=== PATIENT | male | born 1945 | race Caucasian/White ===

== ENCOUNTER 2021-04-25 13:11 | Inpatient (IN) | payer MEDICARE, SELFPAY ==
--- NOTE | ~2021-04-25 | XR_ITS ---
EXAMINATION: XR ABDOMEN KUB CLINICAL INDICATION: Nausea and vomiting COMPARISON: CT abdomen pelvis 04/28/2019 TECHNIQUE: AP view of the abdomen. FINDINGS: The bowel gas pattern is normal with no evidence of ileus or obstruction. No unusual soft tissue calcifications are noted. Contrast is present in both renal pelves as well as the bladder from prior contrast administration for CT angiogram of the head and neck. Degenerative changes present throughout the spine with scoliosis convex to right. No fractures or bony destructive lesions.. XR/XR KUB IMPRESSION: No evidence of bowel obstruction
--- NOTE | ~2021-04-25 | CT_ITS ---
EXAMINATION: CT ANGIOGRAM NECK WITH CONTRAST CT ANGIOGRAM BRAIN WITH CONTRAST CLINICAL INFORMATION: Headaches. COMPARISON: Head CT 07/09/2011. TECHNIQUE: Test bolus sequences followed by intravenous administration 70 mL of Omnipaque 350. Helical imaging was performed in the axial plane from the thoracic inlet to the skull vertex. Delayed postcontrast imaging of the head was also performed. The data was processed at the isotope technologist workstation for generation of MIP sequences. Angled MIPs and volume rendered reformatted images were also generated at an offline 3D workstation. Stenoses are assessed in accordance with NASCET criteria unless otherwise indicated. This CT examination was performed using dose optimization techniques as appropriate, variously including the following: *Automated exposure control *Adjustment of mA and/or kV according to patient size (this includes techniques or standardized protocols for targeted exams where dose is matched to indication/reason for exam; i.e. extremities or head) *Use of iterative reconstruction technique DLP: 2160 mGy-cm FINDINGS: Head CT: On the postcontrast images, there is no intracranial hemorrhage, extra-axial collection, mass effect, or territorial infarction. There is low-attenuation in the right more than left inferior frontal lobes marginating the operculum which may represent areas of chronic infarction or chronic small vessel ischemic changes but appear similar compared with 07/09/2011. The ventricles are normal in size without evidence of hydrocephalus. No enhancing lesion is seen. The dural venous sinuses are normally opacified. There is moderate polypoid paranasal sinus mucosal thickening involving the ethmoids. There is circumferential mucosal thickening and layering fluid in the maxillary sinuses. The mastoids are clear. Neck CTA: The aortic arch is patent. The great vessel origins are patent. Both common carotid arteries are patent. Atheromatous changes are seen at the left more than right carotid bifurcations but without flow-limiting stenosis. 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 Right cervical ICA is otherwise unremarkable. The left cervical ICA is patent. The right vertebral artery is patent throughout its cervical course. There is some narrowing of the left vertebral artery as it courses adjacent to the severely degenerated left-sided atlantoaxial joint with approximately mild stenosis present. Head CTA: The intradural segments of both vertebral arteries appear normal. A basilar fenestration is present. The basilar artery is otherwise unremarkable. The bilingual case manager appear normal. The cervical ICAs are patent. The ACAs and MCAs are patent. No vascular occlusion or significant stenosis is seen. There is no definite aneurysm. Non-vascular findings: The cervical soft tissues are within normal limits. The esophagus appears significantly patulous and filled with fluid/ingested material. The imaged upper lungs appear clear. Severe degenerative changes are seen in the cervical spine. There is grade 1 retrolisthesis of C4 on C5 and C5 on C6. Spinal canal stenosis appears severe at C4-C5 and C5-C6. CT/CT angio head neck IMPRESSION: CT head: No intracranial hemorrhage or large acute infarction. Moderate polypoid soft tissue thickening within the paranasal sinuses and layering fluid in the bilateral maxillary sinuses. Consider clinical evaluation for acute sinusitis. CTA neck: No hemodynamically significant stenosis in the major arteries of the neck. 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 Vascular consultation/follow-up is recommended. CTA head: No large vessel occlusion or significant stenosis within the intracranial circulation. Additional findings: Severe multilevel degenerative spondylosis with severe spinal canal stenosis seen at C4-C5 and C5-C6. There is likely cord compression at these levels. Patulous dilated esophagus containing fluid/ingested contents. This critical result was discussed with Mel Clifford on 04/25/2021 9:37 PM, and it was ascertained that the content and urgency of the report was understood at the time of direct communication.
[2021-04-25 13:32] VITALS: BP 149/93; PULSE 90; RESP 16; TEMP 36.9; O2SAT 97; BMI 22.4
[2021-04-25 16:30] LABS: MANUAL DIFF FLAG NO
[2021-04-25 16:31] LABS: Basophils Percent Auto 0.2 % (0-2); Eosinophils Absolute Auto 0.1 X10*3/uL (0.0-0.4); Hematocrit 38.6 % (42-52); Hemoglobin 12.9 g/dl (14.0-18.0); Imm Gran Abs Auto 0.01 X10*3/uL (0.00-0.03); Imm Gran Pct Auto 0.2 % (0.0-0.4); Lymphocytes Absolute Auto 1.1 X10*3/uL (1.2-4.9); Lymphocytes Percent Auto 18.6 % (20-40); Mean Corpuscular HGB Conc 33.4 g/dl (31.0-36.0); Mean Corpuscular Hemoglobin 29.6 pg (27.0-33.0); Mean Corpuscular Volume 88.5 fL (80-98); Mean Platelet Volume 8.2 fL (9.4-12.4); Monocytes Absolute Auto 0.6 X10*3/uL (0.1-1.2); Monocytes Percent Auto 10.7 % (2-11); Neutrophils Percent Auto 69.3 % (45-73); Platelet Count 237 X10*3/uL (160-400); Red Blood Count 4.36 X10*6/uL (4.60-5.80); Red Cell Distribution Width 14.1 % (11.0-16.0); White Blood Count 5.8 X10*3/uL (4.8-10.8)
[2021-04-25 16:43] LABS: Anion Gap 12 (12-20); Blood Urea Nitrogen 13 mg/dL (9-16); Calcium 8.5 mg/dL (8.4-10.2); Carbon Dioxide 25 mmol/L (22-29); Chloride 98 mmol/L (96-108); Estimated Glomerular Filt Rate > 60; Glucose Random 82 mg/dL (60-115); Potassium 3.7 mmol/L (3.3-5.1); Sodium 131 mmol/L (135-145)
--- NOTE | 2021-04-25 19:01 | ECG_ITS ---
Test Reason : HEADACHE Blood Pressure : / mmHG Vent. Rate : 078 BPM Atrial Rate : 078 BPM P-R Int : 232 ms QRS Dur : 102 ms QT Int : 402 ms P-R-T Axes : 020 003 013 degrees QTc Int : 458 ms Sinus rhythm with 1st degree A-V block Otherwise normal ECG When compared with ECG of 09-JUL-2011 11:38, [place] interval has increased Referred By: Mel Mcclain Electronically Signed By:MOE ANTONIO
--- NOTE | 2021-04-25 19:01 | ED.HA ---
HPI - Headache General Chief Complaint: Headache Stated Complaint: HEAD PRESSURE FEVER Time Seen by Provider: 04/26/21 00:04 Source: patient Mode of arrival: ambulatory Limitations: no limitations History of Present Illness HPI Narrative: 75-year-old male presents with three months of intractable headache, daily nausea and vomiting for approximately 6 months, and intermittent fevers for the past 2 years. He states that he has been taking up to 20 tablets of Excedrin on a daily basis, and has 10/10 headache on minimal exertion. He needs to rest approximately every 15 minutes because his headaches are so bad they cause dizziness and loss of balance. MD elicited complaint: headache and migraine Onset (ago): month(s) Onset description: while at rest and with exertion Location: generalized Severity: severe Quality & Timing: aching, throbbing, squeezing and progressively worsening Exacerbating factors: exertion and movement of head/neck Relieving factors: nothing Associated symptoms: vomiting, neck stiffness, eye pain and malaise Treatments prior to arrival: acetaminophen and migraine medication Related Data Home Medications Medication Instructions Recorded Confirmed cetirizine 10 mg tablet 1 tab PO DAILY 04/25/21 04/25/21 finasteride 5 mg tablet 1 tab PO DAILY 04/25/21 04/25/21 omeprazole 40 mg capsule,delayed 1 cap PO BID 04/25/21 04/25/21 release tamsulosin 0.4 mg capsule 1 cap PO DAILY 04/25/21 04/25/21 Allergies Allergy/AdvReac Type Severity Reaction Status Date / Time No Known Allergies Allergy Verified 04/25/21 19:56 Review of Systems Review of Systems: Constitutional: No Fever, No Chills ENT/Mouth: No Ear Pain, No Hoarseness, No sore throat Eyes: No Eye Pain, No Swelling, No Redness, No Foreign Body Cardiovascular: No Chest Pain, No SOB Respiratory: No Cough, No Dyspnea Gastrointestinal: Positive Nausea, positive Vomiting, No Diarrhea, No abdominal Pain Genitourinary: No Dysuria, No Hematuria Musculoskeletal: No joint pain, No Myalgias, No Joint Swelling Skin: No Skin lacerations, No rash Neuro: No Weakness, No Numbness, No Paresthesias, No Loss of Consciousness, No Dizziness, positive Headache Psych: No Anxiety/Panic, No Depression Heme/Lymph: no easy bruising, no Lymphadenopathy Endocrine: No Polyuria, No Polydipsia Yes all other systems are reviewed and are negative [facility] Past Medical History Attestation statement: The following information was validated with the patient. Source: old records reviewed Social History Social History Household Members: Spouse Housing: House Do you presently have visiting nurse or other home services: No Alcohol intake: former Patient Tobacco Use Status: Never used Tobacco Second Hand Smoke Exposure: No Use of substances other than those prescribed or required for medical reasons: No Have you been hit, kicked, punched, or otherwise hurt by someone within the past year? If so, by whom?: No Do you feel safe in your current relationship?: Yes Is there a partner from a previous relationship who is making you feel unsafe now?: No Are you made to feel afraid or neglected: No Advance Directives: No Do you have thoughts of harming others: None Do you have a plan to hurt others: No Plan Recently lost weight without trying: Yes How much weight loss: Unsure Eating poorly because of decreased appetite: Yes Nutrition screen score: 5 Nutrition Risks: Acute nausea or vomiting x1 week Poor oral hygiene: No Physical Exam Vital Signs: Vital Signs: Last Vital Signs Temp 98.0 F 04/25/21 21:50 Pulse 75 04/26/21 00:29 Resp 12 04/26/21 00:29 BP 149/93 H 04/26/21 00:29 Pulse Ox 96 04/26/21 00:29 Body Mass Index 22.4 Appearance: Alert. Oriented X3. Moderate distress. Thin. Head: Normal external exam. Normocephalic. Atraumatic. No Kirkpatrick signs noted. No raccoon eyes noted Eyes: PERRLA. EOMI. Conjunctiva and sclera normal. Eyelids normal. ENT: TM's Normal. Pharynx normal. Uvula midline. Moist mucous membranes. No trismus noted. No drooling noted. No muffled voice noted. Neck: Normal inspection. Neck supple. No adenopathy. Thyroid Normal. No meningeal signs. No neck mass noted. CVS: Normal heart rate and rhythm. Heart sound normal. No murmurs noted. Pulses equal to all extremities. Respiratory: No respiratory distress. Painless inspiration. Breath sounds normal. No wheezes/rales/rhonchi noted. Chest nontender. No accessory muscle usage noted or decreased air movement noted. Abdomen: Soft and nontender. Bowel sounds normal in all 4 quadrants. No distention noted. No organomegaly noted. No visible injury noted. Back: No CVA tenderness. Full range of motion noted. Skin: Skin warm and dry. Normal skin color. Normal skin turgor. No rashes/lesions/lacerations noted. Extremities: No lower extremity edema. Extremities exhibit normal range of motion. Extremities nontender. Neuro: cranial nerves 2-12 intact, no focal neural deficits, strength 5/5 to all extremities, No motor deficit. No sensory deficit. Reflexes normal. Course Course Course Narrative: 75-year-old male presents with intractable headache for approximately 3 months, gradually getting worse, unrelieved with [id number] medications and migraine medications. Accompanied with nausea and vomiting, worsens with exertion. Will order CTA of head and neck. Mild hyponatremia 131, CRP elevated at 4.14. CT scan of head and neck indicate severe spinal stenosis with cervical compression. I did discuss this case with Dr. Gibson, on-call Neurology, plan of care is to admit, place on soft C-collar and MRI for tomorrow. Discussed with hospitalist. CT scan also indicates sinusitis. Will treat with Augmentin and prednisone. Patient verbalizes understanding of and agrees to plan for admission. Consultations Consultation #1: Arthur Time: 21:54 Consultation #2: lorie Time: 23:21 MDM - Headache Differential Diagnosis Differential diagnosis: Likely migraine, tension headache, subarachnoid hemorrhage, headache and sinusitis Medical Records Attestation: I reviewed the patient's medical records. Lab Data Attestation: I reviewed the patient's lab results. Result diagrams: 04/25/21 16:11 04/25/21 16:11 Labs: Lab Results 04/25/21 04/25/21 04/25/21 Range/Units 16:11 16:11 19:43 WBC 5.8 (4.8-10.8) X10*3/uL RBC 4.36 L (4.60-5.80) X10*6/uL Hgb 12.9 L (14.0-18.0) g/dl Hct 38.6 L (42-52) % MCV 88.5 (80-98) fL MCH 29.6 (27.0-33.0) pg MCHC 33.4 (31.0-36.0) g/dl RDW 14.1 (11.0-16.0) % Plt Count 237 (160-400) X10*3/uL MPV 8.2 L (9.4-12.4) fL Immature Gran % (Auto) 0.2 (0.0-0.4) % Neut % (Auto) 69.3 (45-73) % Lymph % (Auto) 18.6 L (20-40) % Cotton % (Auto) 10.7 (2-11) % Eos % (Auto) 1.0 (0-4) % Baso % (Auto) 0.2 (0-2) % Lymph # (Auto) 1.1 L (1.2-4.9) X10*3/uL Cotton # (Auto) 0.6 (0.1-1.2) X10*3/uL Eos # (Auto) 0.1 (0.0-0.4) X10*3/uL Baso # (Auto) 0.0 (0.0-0.2) X10*3/uL Abs Immat Gran (auto) 0.01 (0.00-0.03) X10*3/uL Absolute Neuts (auto) 4.0 (2.0-8.3) X10*3/uL Absolute Nucleated RBC 0.000 (0.0-0.012) X10*3/uL Nucleated RBC % (auto) 0.0 (0.0-0.2) /100WBC ESR (0-15) MM/HR Sodium 131 L (135-145) mmol/L Potassium 3.7 (3.3-5.1) mmol/L Chloride 98 (96-108) mmol/L Carbon Dioxide 25 (22-29) mmol/L Anion Gap 12 (12-20) BUN 13 (9-16) mg/dL Creatinine 0.71 (0.5-1.4) mg/dL Estim Creat Clear Calc 85.0 Estimated GFR > 60 Random Glucose 82 (60-115) mg/dL Calcium 8.5 (8.4-10.2) mg/dL Magnesium (1.6-2.6) mg/dL Troponin I High Sens (<3.5-35.0) ng/L C-Reactive Protein (< or = 0.50) mg/dL Urine Color Urine Appearance Urine pH (5.0-8.0) Ur Specific [place] (1.005-1.025) Urine Protein (NEG-TRACE) MG/DL Urine Glucose (UA) (NEG) MG/DL Urine Ketones (NEG) MG/DL Urine Blood (NEG) Urine Nitrite (NEG) Ur Leukocyte Esterase (NEG) Urine RBC (0) /HPF Urine WBC (0-4) /HPF Ur Squamous Epith Cells /LPF Urine Bacteria /LPF Urine Opiates Screen (Not Detect) Urine Fentanyl Screen (Not Detect) Ur Barbiturates Screen (Not Detect) Ur Phencyclidine Scrn (Not Detect) Ur Amphetamines Screen (Not Detect) U Benzodiazepines Scrn (Not Detect) Urine Cocaine Screen (Not Detect) U Marijuana (THC) Screen (Not Detect) COVID-19 (JOHNNY) Negative (Negative) COVID-19 Clin Com See Note 04/25/21 04/25/21 04/25/21 Range/Units 19:43 19:43 19:50 WBC (4.8-10.8) X10*3/uL RBC (4.60-5.80) X10*6/uL Hgb (14.0-18.0) g/dl Hct (42-52) % MCV (80-98) fL MCH (27.0-33.0) pg MCHC (31.0-36.0) g/dl RDW (11.0-16.0) % Plt Count (160-400) X10*3/uL MPV (9.4-12.4) fL Immature Gran % (Auto) (0.0-0.4) % Neut % (Auto) (45-73) % Lymph % (Auto) (20-40) % Cotton % (Auto) (2-11) % Eos % (Auto) (0-4) % Baso % (Auto) (0-2) % Lymph # (Auto) (1.2-4.9) X10*3/uL Cotton # (Auto) (0.1-1.2) X10*3/uL Eos # (Auto) (0.0-0.4) X10*3/uL Baso # (Auto) (0.0-0.2) X10*3/uL Abs Immat Gran (auto) (0.00-0.03) X10*3/uL Absolute Neuts (auto) (2.0-8.3) X10*3/uL Absolute Nucleated RBC (0.0-0.012) X10*3/uL Nucleated RBC % (auto) (0.0-0.2) /100WBC ESR 11 (0-15) MM/HR Sodium (135-145) mmol/L Potassium (3.3-5.1) mmol/L Chloride (96-108) mmol/L Carbon Dioxide (22-29) mmol/L Anion Gap (12-20) BUN (9-16) mg/dL Creatinine (0.5-1.4) mg/dL Estim Creat Clear Calc Estimated GFR Random Glucose (60-115) mg/dL Calcium (8.4-10.2) mg/dL Magnesium (1.6-2.6) mg/dL Troponin I High Sens (<3.5-35.0) ng/L C-Reactive Protein (< or = 0.50) mg/dL Urine Color YELLOW Urine Appearance CLEAR Urine pH 6.0 (5.0-8.0) Ur Specific [place] 1.010 (1.005-1.025) Urine Protein NEG (NEG-TRACE) MG/DL Urine Glucose (UA) NEG (NEG) MG/DL Urine Ketones NEG (NEG) MG/DL Urine Blood TRACE (NEG) Urine Nitrite NEG (NEG) Ur Leukocyte Esterase NEG (NEG) Urine RBC 0-2 (0) /HPF Urine WBC 0-2 (0-4) /HPF Ur Squamous Epith Cells NONE /LPF Urine Bacteria NONE /LPF Urine Opiates Screen Not Detected (Not Detect) Urine Fentanyl Screen Not Detected (Not Detect) Ur Barbiturates Screen Not Detected (Not Detect) Ur Phencyclidine Scrn Not Detected (Not Detect) Ur Amphetamines Screen Not Detected (Not Detect) U Benzodiazepines Scrn Not Detected (Not Detect) Urine Cocaine Screen Not Detected (Not Detect) U Marijuana (THC) Screen Not Detected (Not Detect) COVID-19 (JOHNNY) (Negative) COVID-19 Clin Com 04/25/21 04/25/21 Range/Units 19:50 19:50 WBC (4.8-10.8) X10*3/uL RBC (4.60-5.80) X10*6/uL Hgb (14.0-18.0) g/dl Hct (42-52) % MCV (80-98) fL MCH (27.0-33.0) pg MCHC (31.0-36.0) g/dl RDW (11.0-16.0) % Plt Count (160-400) X10*3/uL MPV (9.4-12.4) fL Immature Gran % (Auto) (0.0-0.4) % Neut % (Auto) (45-73) % Lymph % (Auto) (20-40) % Cotton % (Auto) (2-11) % Eos % (Auto) (0-4) % Baso % (Auto) (0-2) % Lymph # (Auto) (1.2-4.9) X10*3/uL Cotton # (Auto) (0.1-1.2) X10*3/uL Eos # (Auto) (0.0-0.4) X10*3/uL Baso # (Auto) (0.0-0.2) X10*3/uL Abs Immat Gran (auto) (0.00-0.03) X10*3/uL Absolute Neuts (auto) (2.0-8.3) X10*3/uL Absolute Nucleated RBC (0.0-0.012) X10*3/uL Nucleated RBC % (auto) (0.0-0.2) /100WBC ESR (0-15) MM/HR Sodium (135-145) mmol/L Potassium (3.3-5.1) mmol/L Chloride (96-108) mmol/L Carbon Dioxide (22-29) mmol/L Anion Gap (12-20) BUN (9-16) mg/dL Creatinine (0.5-1.4) mg/dL Estim Creat Clear Calc Estimated GFR Random Glucose (60-115) mg/dL Calcium (8.4-10.2) mg/dL Magnesium 1.9 (1.6-2.6) mg/dL Troponin I High Sens < 3.5 (<3.5-35.0) ng/L C-Reactive Protein 4.14 H (< or = 0.50) mg/dL Urine Color Urine Appearance Urine pH (5.0-8.0) Ur Specific [place] (1.005-1.025) Urine Protein (NEG-TRACE) MG/DL Urine Glucose (UA) (NEG) MG/DL Urine Ketones (NEG) MG/DL Urine Blood (NEG) Urine Nitrite (NEG) Ur Leukocyte Esterase (NEG) Urine RBC (0) /HPF Urine WBC (0-4) /HPF Ur Squamous Epith Cells /LPF Urine Bacteria /LPF Urine Opiates Screen (Not Detect) Urine Fentanyl Screen (Not Detect) Ur Barbiturates Screen (Not Detect) Ur Phencyclidine Scrn (Not Detect) Ur Amphetamines Screen (Not Detect) U Benzodiazepines Scrn (Not Detect) Urine Cocaine Screen (Not Detect) U Marijuana (THC) Screen (Not Detect) COVID-19 (JOHNNY) (Negative) COVID-19 Clin Com Imaging Data CT head neck: Attestation: I personally reviewed and interpreted this imaging study as follows: Radiologist's impression: FINDINGS: Head CT: On the postcontrast images, there is no intracranial hemorrhage, extra-axial collection, mass effect, or territorial infarction. There is low-attenuation in the right more than left inferior frontal lobes marginating the operculum which may represent areas of chronic infarction or chronic small vessel ischemic changes but appear similar compared with 07/09/2011. The ventricles are normal in size without evidence of hydrocephalus. No enhancing lesion is seen. The dural venous sinuses are normally opacified. There is moderate polypoid paranasal sinus mucosal thickening involving the ethmoids. There is circumferential mucosal thickening and layering fluid in the maxillary sinuses. The mastoids are clear. Neck CTA: The aortic arch is patent. The great vessel origins are patent. Both common carotid arteries are patent. Atheromatous changes are seen at the left more than right carotid bifurcations but without flow-limiting stenosis. 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 Right cervical ICA is otherwise unremarkable. The left cervical ICA is patent. The right vertebral artery is patent throughout its cervical course. There is some narrowing of the left vertebral artery as it courses adjacent to the severely degenerated left-sided atlantoaxial joint with approximately mild stenosis present. Head CTA: The intradural segments of both vertebral arteries appear normal. A basilar fenestration is present. The basilar artery is otherwise unremarkable. The residential support worker appear normal. The cervical ICAs are patent. The ACAs and MCAs are patent. No vascular occlusion or significant stenosis is seen. There is no definite aneurysm. Non-vascular findings: The cervical soft tissues are within normal limits. The esophagus appears significantly patulous and filled with fluid/ingested material. The imaged upper lungs appear clear. Severe degenerative changes are seen in the cervical spine. There is grade 1 retrolisthesis of C4 on C5 and C5 on C6. Spinal canal stenosis appears severe at C4-C5 and C5-C6. CT/CT angio head neck IMPRESSION: CT head: No intracranial hemorrhage or large acute infarction. Moderate polypoid soft tissue thickening within the paranasal sinuses and layering fluid in the bilateral maxillary sinuses. Consider clinical evaluation for acute sinusitis. ? CTA neck: No hemodynamically significant stenosis in the major arteries of the neck. 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 Vascular consultation/follow-up is recommended. ? CTA head: No large vessel occlusion or significant stenosis within the intracranial circulation. ? Additional findings: Severe multilevel degenerative spondylosis with severe spinal canal stenosis seen at C4-C5 and C5-C6. There is likely cord compression at these levels. ? Patulous dilated esophagus containing fluid/ingested contents. ? This critical result was discussed with Mel Clifford on 04/25/2021 9:37 PM, and it was ascertained that the content and urgency of the report was understood at the time of direct communication. ? KUB: Attestation: I personally reviewed and interpreted this imaging study as follows: Radiologist's impression: EXAMINATION: XR ABDOMEN KUB CLINICAL INDICATION: Nausea and vomiting? COMPARISON: CT abdomen pelvis 04/28/2019? TECHNIQUE: AP view of the abdomen. FINDINGS: The bowel gas pattern is normal with no evidence of ileus or obstruction. No unusual soft tissue calcifications are noted. Contrast is present in both renal pelves as well as the bladder from prior contrast administration for CT angiogram of the head and neck. Degenerative changes present throughout the spine with scoliosis convex to right. No fractures or bony destructive lesions.. XR/XR KUB IMPRESSION: No evidence of bowel obstruction ECG Data Attestation: I personally reviewed and interpreted this ECG as follows: ECG interpretation date: 04/25/21 ECG interpretation time: 19:46 Prior ECG tracings: available for review Interpretation: Vent. rate 78 BPM MT interval 232 ms QRS duration 102 ms QT/QTc 402/458 ms P-R-T axes 20 3 13 Otherwise normal ECG When compared with ECG of 09-JUL-2011 11:38, MT interval has increased Critical Care Time Critical Care Time Critical Care Time: Yes Total Critical Care Time: 65 Attestation: I have personally provided critical care time exclusive of time spent on separately billable procedures. Time includes review of laboratory data, radiology results, discussion with consultants, and monitoring for potential decompensation. Interventions were performed as documented. Discharge Plan Discharge Clinical Impression: Headache, Cervical stenosis of spinal canal, Nausea & vomiting Patient Disposition: Admitted As Inpatient Interventions: Admission Worksheet (ED) Last Done: 04/26/21 00:36 Discharge Date/Time: 04/26/21 01:01
[2021-04-25] MEDS: 0.9 % Sodium Chloride 1,000 ML 999 ML IVCONT (19:51)
[2021-04-25 19:55] VITALS: BP 129/85; PULSE 85; RESP 17; TEMP 36.8; O2SAT 98
[2021-04-25 20:09] LABS: Appearance Urine CLEAR; Color Urine YELLOW; Glucose Urine UA NEG (NEG); Leukocyte Esterase Urine NEG (NEG); Nitrite Urine NEG (NEG); UACC Culture Trigger NO; Urine Blood TRACE (NEG); Urine Ketones NEG (NEG); Urine Protein NEG (NEG-TRACE)
[2021-04-25 20:17] LABS: C Reactive Protein 4.14 mg/dL (< or = 0.50); Magnesium 1.9 mg/dL (1.6-2.6)
[2021-04-25 20:19] LABS: COVID-19 Test Negative (Negative); IDNOW Serial# 9DD0AD1C
[2021-04-25 20:20] LABS: Amphetamine Screen Urine Not Detected (Not Detect); Barbiturates, Urine Not Detected (Not Detect); Benzodiazepines Screen Urine Not Detected (Not Detect); Cannabinoid Screen Urine Not Detected (Not Detect); Cocaine Screen Urine Not Detected (Not Detect); Fentanyl, urine Not Detected (Not Detect); Opiate Screen Urine Not Detected (Not Detect); Phencyclidine Screen Urine Not Detected (Not Detect)
[2021-04-25 20:24] LABS: Troponin-I High Sensitivity < 3.5 ng/L (<3.5-35.0)
[2021-04-25 20:27] LABS: RBC Urine 0-2 /HPF (0); WBC Urine 0-2 /HPF (0-4)
[2021-04-25] MEDS: iohexoL 350 MG/ML 100 ML INFUS..BTL IV (20:52)
[2021-04-25 21:00] LABS: Erythrocyte Sedimentation Rate 11 MM/HR (0-15)
[2021-04-25 21:50] VITALS: BP 148/77; PULSE 78; RESP 18; TEMP 36.7; O2SAT 94
[2021-04-25] MEDS: predniSONE 20 MG TABLET 40 MG PO (22:02)
[2021-04-25] MEDS: Amoxicillin/Potassium Clav 875 MG TABLET PO (22:02)
--- NOTE | 2021-04-25 22:32 | PC.NURSE ---
ABDULKADIR Travis attempting to locate cervical collar. No collars in dept. RN cottage supervisor made aware, attempting to locate within hospital. Mel JENKINS made aware
--- NOTE | 2021-04-25 22:52 | PC.NURSE ---
cervical collar located, applied to pt's neck
--- NOTE | 2021-04-25 23:49 | PM.IMHP ---
History of Present Illness Date of Service: 04/25/21 Chief Complaint: Severe headache This is a 75-year-old otherwise healthy male who presents to the hospital with complaints of severe headache as well as nausea and vomiting for the past 3-6 months. Patient reports that he started having pounding severe pressure-like headache for the past 3 months not relieved with [id number] medications. He has been taking Excedrin about 20 pills daily with no relief and therefore decided to come to the ED for further evaluation. Patient denies any numbness tingling or weakness, no loss of bladder or bowel control, denies any chest pain, no shortness of breath, no abdominal pain but reports nausea vomiting for 2 years and has was sent over the last 6 months. Patient reports history of hiatal hernia and reports that he has been following up with outpatient specialist regarding his chronic nausea and vomiting. Patient also reports on and off fever and has been worked up for this in the past with no source found. Patient reports that he has lost over 30 lb due difficulty swallowing for the past 6 months. Patient denies any urinary symptoms and no lower extremity edema. All other review of system negative On arrival to the ED patient hemodynamically stable with no significant abnormal vitals Labs are significant for WBC count of 5.8, CRP of 4.14, otherwise unremarkable. Head and neck CT angiogram shows severe multilevel degenerative spondylosis with severe spinal canal stenosis at C4-C5 and C5-C6 with likely cord compression at these levels. CT also showed patulous dilated esophagus containing fluid/ingested content Neurology was contacted by the ED, recommend a soft collar and further evaluation in a.m.. Review of Systems Review of Systems: Yes all other systems are reviewed and are negative [facility] Social History Household Members: Spouse Housing: House Do you presently have visiting nurse or other home services: No Alcohol intake: former Patient Tobacco Use Status: Never used Tobacco Second Hand Smoke Exposure: No Use of substances other than those prescribed or required for medical reasons: No Have you been hit, kicked, punched, or otherwise hurt by someone within the past year? If so, by whom?: No Do you feel safe in your current relationship?: Yes Is there a partner from a previous relationship who is making you feel unsafe now?: No Are you made to feel afraid or neglected: No Advance Directives: No Do you have thoughts of harming others: None Do you have a plan to hurt others: No Plan Recently lost weight without trying: Yes How much weight loss: Unsure Eating poorly because of decreased appetite: Yes Nutrition screen score: 5 Nutrition Risks: Acute nausea or vomiting x1 week Poor oral hygiene: No Meds Allergies Allergy/AdvReac Type Severity Reaction Status Date / Time No Known Allergies Allergy Verified 04/25/21 19:56 Home Medications Medication Instructions Recorded Confirmed Last Taken Type cetirizine 10 mg tablet 1 tab PO DAILY 04/25/21 04/25/21 Unknown History finasteride 5 mg tablet 1 tab PO DAILY 04/25/21 04/25/21 Unknown History omeprazole 40 mg capsule,delayed 1 cap PO BID 04/25/21 04/25/21 Unknown History release tamsulosin 0.4 mg capsule 1 cap PO DAILY 04/25/21 04/25/21 Unknown History Physical Exam Vital Signs and Narrative: Vital Signs: Last Vital Signs Temp 98.0 F 04/25/21 21:50 Pulse 78 04/25/21 21:50 Resp 18 04/25/21 21:50 BP 148/77 H 04/25/21 21:50 Pulse Ox 94 04/25/21 21:50 Body Mass Index 22.4 Const: General: cooperative and no acute distress Orientation/consciousness: patient oriented x3 Eyes: General: appearance normal, both eyes and all related structures Neck: Other: In soft collar Resp: Effort & Inspection: normal respiratory effort Auscultation: clear to auscultation bilaterally Cardio: Rate: regular rate Rhythm: regular rhythm GI: Other: No abdominal tenderness, no rebound or guarding Palpation (GI): Soft to palpation Auscultation: normal bowel sounds Skin: General skin exam: no rashes or lesions noted Neuro: General: patient oriented x3 Cognition (Neuro): normal cognition Extrem: General: Yes normal to inspection and Yes no pedal edema Results Labs CBC and Chem 7: 04/26/21 05:20 04/26/21 05:20 Labs: Laboratory Results - last 24 hr 04/25/21 04/25/21 04/25/21 16:11 16:11 19:43 MCV 88.5 MCH 29.6 MCHC 33.4 RDW 14.1 Plt Count 237 MPV 8.2 L Immature Gran % (Auto) 0.2 Neut % (Auto) 69.3 Lymph % (Auto) 18.6 L [place] % (Auto) 10.7 Eos % (Auto) 1.0 Baso % (Auto) 0.2 Lymph # (Auto) 1.1 L [place] # (Auto) 0.6 Eos # (Auto) 0.1 Baso # (Auto) 0.0 Abs Immat Gran (auto) 0.01 Absolute Neuts (auto) 4.0 Absolute Nucleated RBC 0.000 Nucleated RBC % (auto) 0.0 ESR Anion Gap 12 Estim Creat Clear Calc 85.0 Estimated GFR > 60 Random Glucose 82 Calcium 8.5 Magnesium Troponin I High Sens C-Reactive Protein Urine Color Urine Appearance Urine pH Ur Specific [place] Urine Protein Urine Glucose (UA) Urine Ketones Urine Blood Urine Nitrite Ur Leukocyte Esterase Urine RBC Urine WBC Ur Squamous Epith Cells Urine Bacteria Urine Opiates Screen Urine Fentanyl Screen Ur Barbiturates Screen Ur Phencyclidine Scrn Ur Amphetamines Screen U Benzodiazepines Scrn Urine Cocaine Screen U Marijuana (THC) Screen COVID-19 (JOHNNY) Negative COVID-19 Clin Com See Note 04/25/21 04/25/21 04/25/21 19:43 19:43 19:50 MCV MCH MCHC RDW Plt Count MPV Immature Gran % (Auto) Neut % (Auto) Lymph % (Auto) [place] % (Auto) Eos % (Auto) Baso % (Auto) Lymph # (Auto) [place] # (Auto) Eos # (Auto) Baso # (Auto) Abs Immat Gran (auto) Absolute Neuts (auto) Absolute Nucleated RBC Nucleated RBC % (auto) ESR 11 Anion Gap Estim Creat Clear Calc Estimated GFR Random Glucose Calcium Magnesium Troponin I High Sens C-Reactive Protein Urine Color YELLOW Urine Appearance CLEAR Urine pH 6.0 Ur Specific [place] 1.010 Urine Protein NEG Urine Glucose (UA) NEG Urine Ketones NEG Urine Blood TRACE Urine Nitrite NEG Ur Leukocyte Esterase NEG Urine RBC 0-2 Urine WBC 0-2 Ur Squamous Epith Cells NONE Urine Bacteria NONE Urine Opiates Screen Not Detected Urine Fentanyl Screen Not Detected Ur Barbiturates Screen Not Detected Ur Phencyclidine Scrn Not Detected Ur Amphetamines Screen Not Detected U Benzodiazepines Scrn Not Detected Urine Cocaine Screen Not Detected U Marijuana (THC) Screen Not Detected COVID-19 (JOHNNY) COVID-19 Clin Com 04/25/21 04/25/21 19:50 19:50 MCV MCH MCHC RDW Plt Count MPV Immature Gran % (Auto) Neut % (Auto) Lymph % (Auto) [place] % (Auto) Eos % (Auto) Baso % (Auto) Lymph # (Auto) [place] # (Auto) Eos # (Auto) Baso # (Auto) Abs Immat Gran (auto) Absolute Neuts (auto) Absolute Nucleated RBC Nucleated RBC % (auto) ESR Anion Gap Estim Creat Clear Calc Estimated GFR Random Glucose Calcium Magnesium 1.9 Troponin I High Sens < 3.5 C-Reactive Protein 4.14 H Urine Color Urine Appearance Urine pH Ur Specific [place] Urine Protein Urine Glucose (UA) Urine Ketones Urine Blood Urine Nitrite Ur Leukocyte Esterase Urine RBC Urine WBC Ur Squamous Epith Cells Urine Bacteria Urine Opiates Screen Urine Fentanyl Screen Ur Barbiturates Screen Ur Phencyclidine Scrn Ur Amphetamines Screen U Benzodiazepines Scrn Urine Cocaine Screen U Marijuana (THC) Screen COVID-19 (JOHNNY) COVID-19 Clin Com Imaging Radiologist's Impressions: Impressions Head/Neck CTA 04/25/21 19:01 IMPRESSION: CT head: No intracranial hemorrhage or large acute infarction. Moderate polypoid soft tissue thickening within the paranasal sinuses and layering fluid in the bilateral maxillary sinuses. Consider clinical evaluation for acute sinusitis. CTA neck: No hemodynamically significant stenosis in the major arteries of the neck. 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 Vascular consultation/follow-up is recommended. CTA head: No large vessel occlusion or significant stenosis within the intracranial circulation. Additional findings: Severe multilevel degenerative spondylosis with severe spinal canal stenosis seen at C4-C5 and C5-C6. There is likely cord compression at these levels. Patulous dilated esophagus containing fluid/ingested contents. This critical result was discussed with Mel Clifford on 04/25/2021 9:37 PM, and it was ascertained that the content and urgency of the report was understood at the time of direct communication. Assessment and Plan (1) Cervical stenosis of spinal canal: Status: Acute (2) Headache: Status: Acute (3) Nausea & vomiting: Status: Acute (4) Dysphagia: Status: Acute 75-year-old male with past medical history of higher hernia chronic nausea vomiting presents to the hospital with persistent, intractable headache found to have a canal stenosis with possible cord compression # cervical stenosis of spinal canal with possible cord compression - most likely cause of headache - CT head and neck finding as above - patient will be started on dexamethasone - continue soft collar - neurology consulted - will hold off on ordering any imaging until evaluated by Neurology # chronic nausea and vomiting - possibly related to hiatal hernia - will consult speech for swallow evaluation # dysphagia - most likely secondary to above - speech eval DVT prophylaxis: Lovenox Quality Stroke Does the patient have a stroke diagnosis?: No VTE Prior VTE?: No VTE Risk Level:: Medical - moderate - high VTE Device Contraindication: Treatment Not Indicated VTE Drug Contraindication: N/A - Med Ordered
[2021-04-26 00:29] VITALS: BP 149/93; PULSE 75; RESP 12; O2SAT 96
[2021-04-26 01:15] VITALS: BMI 22.1
[2021-04-26 01:28] VITALS: BP 140/88; PULSE 79; RESP 18; TEMP 36.8; O2SAT 95
[2021-04-26] MEDS: traZODone HCL 25 MG HALFTAB PO (02:34)
[2021-04-26 03:46] VITALS: BP 149/94; PULSE 84; RESP 16; TEMP 36.6; O2SAT 95
[2021-04-26] MEDS: dexAMETHasone sod phosphate 4 MG/ML VIAL IVPUSH (05:37)
[2021-04-26] MEDS: Enoxaparin Sodium 40 MG/0.4 ML SYRINGE SUBCUT (05:37)
[2021-04-26 05:42] LABS: MANUAL DIFF FLAG NO
[2021-04-26 05:44] LABS: Basophils Percent Auto 0.3 % (0-2); Eosinophils Percent Auto 0.3 % (0-4); Hematocrit 41.4 % (42-52); Hemoglobin 13.9 g/dl (14.0-18.0); Imm Gran Abs Auto 0.01 X10*3/uL (0.00-0.03); Imm Gran Pct Auto 0.3 % (0.0-0.4); Lymphocytes Absolute Auto 0.4 X10*3/uL (1.2-4.9); Lymphocytes Percent Auto 11.8 % (20-40); Mean Corpuscular HGB Conc 33.6 g/dl (31.0-36.0); Mean Corpuscular Hemoglobin 29.4 pg (27.0-33.0); Mean Corpuscular Volume 87.5 fL (80-98); Mean Platelet Volume 8.3 fL (9.4-12.4); Monocytes Absolute Auto 0.2 X10*3/uL (0.1-1.2); Monocytes Percent Auto 4.8 % (2-11); Neutrophils Absolute Auto 2.7 X10*3/uL (2.0-8.3); Neutrophils Percent Auto 82.5 % (45-73); Platelet Count 262 X10*3/uL (160-400); Red Blood Count 4.73 X10*6/uL (4.60-5.80); Red Cell Distribution Width 14.1 % (11.0-16.0); White Blood Count 3.3 X10*3/uL (4.8-10.8)
[2021-04-26 06:31] LABS: Anion Gap 14 (12-20); Blood Urea Nitrogen 11 mg/dL (9-16); Calcium 8.8 mg/dL (8.4-10.2); Carbon Dioxide 21 mmol/L (22-29); Chloride 103 mmol/L (96-108); Creatinine Clr Calc Pharmacy 83.8; Estimated Glomerular Filt Rate > 60; Glucose Random 126 mg/dL (60-115); Potassium 4.3 mmol/L (3.3-5.1); Sodium 134 mmol/L (135-145)
[2021-04-26 08:00] VITALS: BP 147/96; PULSE 96; RESP 18; TEMP 35.8; O2SAT 96
[2021-04-26] MEDS: Omeprazole 40 MG CAPSULE.DR PO (09:45)
[2021-04-26] MEDS: Tamsulosin HCL 0.4 MG CAPSULE PO (09:45)
[2021-04-26] MEDS: Finasteride 5 MG TABLET PO (09:45)
[2021-04-26] MEDS: 0.9 % Sodium Chloride Flush 3 ML SYRINGE IVFLUSH (09:45)
[2021-04-26] MEDS: Loratadine 10 MG TABLET PO (09:45)
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
--- NOTE | 2021-04-26 10:34 | MHC.SL.SWA ---
Speech Pathologist Impression: Risk of Aspiration Esophageal Dysphagia Risk of Aspiration Due to: impulsive eating behaviors, poor insight into his deficits Dysphasia Diet Status: No Change Liquid Consistency and Strategies for Safe Swallow: Liquid Intake Recommendation: Thin Liquid Intake Strategies: Small, single Sips. NO STRAWS Solid Food Consistency: Dietary Recommendations: Regular Additional Modifications to Solid Foods: Extra sauce/gravy on meat, avoidance of dry foods. Medications in puree. Oral Medication Intake: Whole with Puree Compensatory Strategies and Precautions to be Taken for Safe Swallow: Sitting Upright (90 deg) No Straw Liquids from Cup Small Bites and Sips Alternate Liquids/Solids Rate of Ingestion Change Avoid Specific Foods Supervision While Eating and Drinking for Safe Swallow: None Needed Foods to Avoid: dry foods Swallowing Recommended Treatments: Compens. Strategy Educat. Recommendation for Speech: Inpatient Speech Therapy May consider a GI consult Comment: Frequency/Duration: x1 follow-up for continued education re: safe swallowing strategies and aspiration/reflux precautions. Date Range for Service Req: Timeline to reassess: Railroad Car Cleaning Supervisor Clinican/Clinical Fellow: No Supervisory Statement: I have reviewed and agree with the student/clinical fellow's documentation: N/A Speech Language Pathologist: Mae Grove M.A., CCC-MANAGER NEONATAL
--- NOTE | 2021-04-26 11:16 | P.CNNE_ITS ---
History of Present Illness Data of Consult Service Date: 04/26/21 Primary Care Provider: Jayjay Graves MD [facility] Reason for consult: Headache 75 years old man who came to hospital yesterday with main complaints of headache also stating that he was having nausea and vomiting but to my history taking he did not complain of that. Apparently this was going on for few weeks to few months and he has been taking large doses of [id number] Excedrin for treatment. He could not tell me why he has not discussed this with his primary care physician but decided to come to emergency room stating that visit with primary care physician was on telephone and did not go anywhere. There was no history of any recent fall or any cold or flu-like illness fever chills. He said the pain was almost always on left vertex area and not in the neck and not in the face or sinuses. He denied any sinusitis type of symptoms other than just during last day or 2 of sniffling. He had a CTA of brain and neck resulting in multiple findings in this consultation was requested. 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 [facility] Social History Social History Household Members: Spouse Housing: House Do you presently have visiting nurse or other home services: No Alcohol intake: former Patient Tobacco Use Status: Never used Tobacco Second Hand Smoke Exposure: No Use of substances other than those prescribed or required for medical reasons: No Currently Displaying Signs/Symptoms of Drug Intoxication Withdrawal: No Have you been hit, kicked, punched, or otherwise hurt by someone within the past year? If so, by whom?: No Do you feel safe in your current relationship?: Yes Is there a partner from a previous relationship who is making you feel unsafe now?: No Are you made to feel afraid or neglected: No Advance Directives: No Do you have thoughts of harming others: None Do you have a plan to hurt others: No Plan Recently lost weight without trying: Yes How much weight loss: Unsure Eating poorly because of decreased appetite: Yes Nutrition screen score: 5 Nutrition Risks: Acute nausea or vomiting x1 week Poor oral hygiene: No Meds Allergies Allergy/AdvReac Type Severity Reaction Status Date / Time No Known Allergies Allergy Verified 04/25/21 19:56 Active Medications: Current Medications Generic Name Dose Route Start Last Admin Trade Name Drew PRN Reason Stop Dose Admin Acetaminophen 650 mg 04/26/21 00:17 Acetaminophen 325 Mg Tablet PO Q6H PRN Pain, Mild (Pain Scale 1-3) Dexamethasone Sodium Phosphate 4 mg 04/26/21 06:00 04/26/21 05:37 Dexamethasone Sod Phosphate 4 Mg/Ml Vial IVPUSH 4 mg Q6H LAXMI Administration Docusate Sodium 100 mg 04/26/21 00:17 Docusate Sodium 100 Mg Capsule PO DAILY PRN Constipation Enoxaparin Sodium 40 mg 04/26/21 06:00 04/26/21 05:37 Enoxaparin Sodium 40 Mg/0.4 Ml Syringe SUBCUT 40 mg Q24H LAXMI Administration Finasteride 5 mg 04/26/21 09:00 04/26/21 09:45 Finasteride 5 Mg Tablet PO 5 mg DAILY LAXMI Administration Loratadine 10 mg 04/26/21 09:00 04/26/21 09:45 Loratadine 10 Mg Tablet PO 10 mg DAILY LAXMI Administration Morphine Sulfate 4 mg 04/26/21 00:17 Morphine Sulfate 4 Mg/Ml Cartridge IVPUSH Q4H PRN Pain, Severe (Pain Scale 7-10) Protocol Omeprazole 40 mg 04/26/21 00:17 04/26/21 09:45 Omeprazole 40 Mg Capsule.Dr PO 40 mg BID LAXMI Administration Ondansetron HCl 4 mg 04/26/21 00:17 Ondansetron Hcl 4 Mg/2 Ml Vial IVPUSH Q8H PRN Nausea and Vomiting Sodium Chloride 3 ml 04/26/21 00:17 04/26/21 09:45 0.9 % Sodium Chloride Flush 3 Ml Syringe IVFLUSH 3 ml QSHIFT LAXMI Administration Tamsulosin HCl 0.4 mg 04/26/21 09:00 04/26/21 09:45 Tamsulosin Hcl 0.4 Mg Capsule PO 0.4 mg DAILY LAXMI Administration Home Medications Medication Instructions Recorded Confirmed Last Taken Type cetirizine 10 mg tablet 1 tab PO DAILY 04/25/21 04/25/21 Unknown History finasteride 5 mg tablet 1 tab PO DAILY 04/25/21 04/25/21 Unknown History omeprazole 40 mg capsule,delayed 1 cap PO BID 04/25/21 04/25/21 Unknown History release tamsulosin 0.4 mg capsule 1 cap PO DAILY 04/25/21 04/25/21 Unknown History Physical Exam Vital Signs: Vital Signs: Last Vital Signs Temp 96.5 F L 04/26/21 08:00 Pulse 96 04/26/21 08:00 Resp 18 04/26/21 08:00 BP 147/96 H 04/26/21 08:00 Pulse Ox 96 04/26/21 08:00 Body Mass Index 22.1 Neuro: Other: He was alert and awake with normal spontaneity of speech fluency comprehension and affect. Neck was supple. Face was symmetrical. Extraocular muscles were intact. Visual espinoza are full. Deep tendon reflexes were trace to absent with flexor plantars. Arthritic changes were noted in hands and feet. Results Labs CBC & Chem 7: 04/26/21 05:20 04/26/21 05:20 Labs: Short CBC 04/25/21 04/26/21 Range/Units 16:11 05:20 WBC 5.8 3.3 L (4.8-10.8) X10*3/uL Hgb 12.9 L 13.9 L (14.0-18.0) g/dl Hct 38.6 L 41.4 L (42-52) % Plt Count 237 262 (160-400) X10*3/uL BMP 04/25/21 04/26/21 16:11 05:20 Sodium 131 L 134 L Potassium 3.7 4.3 Chloride 98 103 Carbon Dioxide 25 21 L BUN 13 11 Creatinine 0.71 0.71 Calcium 8.5 8.8 Urine 04/25/21 Range/Units 19:43 Urine Color YELLOW Urine Appearance CLEAR Urine pH 6.0 (5.0-8.0) Ur Specific [place] 1.010 (1.005-1.025) Urine Protein NEG (NEG-TRACE) MG/DL Urine Glucose (UA) NEG (NEG) MG/DL His CTA of brain and neck were reviewed. There was no definite brain pathology. No significant vascular stenosis was noted. Severe spondylitic changes with [id number] retrolisthesis at C4-5 was noted. Spinal canal was significantly tight at that level. Paranasal sinuses reveal signs of mucosal thickening and possible fluid level and maxillary sinuses. Chest x-ray did not reveal any sign of infection. Assessment and Plan (1) Chronic daily headache: Status: Acute He had multiple reasons for headache but more acutely changes and sinuses suggested an inflammatory process. He might be suffering from viral sinusitis. He was taking excessive doses of Excedrin for long time, which raised possibility of rebound headaches. There was no sign of bacterial infection at this time. He should have an outpatient ENT consultation for further exploration of sinus condition. He should completely quit [id number]-uus-[id number] pain medicines. I recommend starting him on amitriptyline 10 mg at bedtime. For pain control he could take naproxen 375 mg with food but not more than 2 to 3 times a week. (2) Analgesic rebound headache: Status: Acute There is no treatment of this condition other than completely stopping the inciting agent. (3) Cervical spondyloarthritis: Status: Acute This is asymptomatic and would not explain headache. There were no clinical signs of cord compression. This could be followed as an outpatient and no immediate action was needed. He should be advised to be careful and avoid neck manipulation of all kinds and Dr. luis e Tolliver to avoid any further injury or instability. 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 Procedures Date of Service Date of Service: 04/26/21
[2021-04-26 11:17] VITALS: BMI 22.1
--- NOTE | 2021-04-26 11:33 | MHC.CLN ---
NUTRITION CONSULT PATIENT REPORTS 30# WEIGHT LOSS (-17.5%) X 6 MONTHS. SIGNIFICANT, UNPLANNED WEIGHT LOSS. REPORTED NAUSEA EACH MORNING WITH VOMITING THAT SUBSIDES IN THE AM. DISCUSSED NUTRITION SUPPLEMENTS AT HOME WITH THE NEED FOR CALORIES AND PROTEIN. WILL ADD ENSURE 240 ML BID (700 KCAL, 40 G PROTEIN). RECOMMENDED CARNATION INSTANT BREAKFAST MADE WITH WHOLE MILK FOR HOME CONSUMPTION.
[2021-04-26 12:00] VITALS: RESP 18
--- NOTE | 2021-04-26 12:01 | P.DS_ITS ---
DS: Providers Provider Date of Service: 04/26/21 Date of admission: 04/25/21 23:48 Primary care physician: Jayjay Graves MD Consults: 04/26/21 00:17 Consult to Neurology Routine Consulting Provider: [facility] Reason for consultation: cord compression Has provider been notified: Yes 04/26/21 07:48 Consult to Vascular Surgery Routine Consulting Provider: Santiago Reyna Reason for consultation: 4 mm posteriorly projecting pseudoaneurysm on CTA, headache for eval DS: Diagnosis Discharge Diagnosis (1) Chronic daily headache: Status: Acute (2) Analgesic rebound headache: Status: Acute (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 Patient reports that he started having pounding severe pressure-like headache for the past 3 months not relieved with xxlu-rdn-jzctjdi medications.? He has been taking Excedrin about 20 pills daily with no relief and therefore decided to come to the ED for further evaluation.? Patient denies any numbness tingling or weakness, no loss of bladder or bowel control, denies any chest pain, no shortness of breath, no abdominal pain but reports nausea vomiting for 2 years and has was sent over the last 6 months.? Patient reports history of hiatal hernia and reports that he has been following up with outpatient specialist regarding his chronic nausea and vomiting.? Patient also reports on and off fever and has been worked up for this in the past with no source found.? Patient reports that he has lost over 30 lb due difficulty swallowing for the past 6 months. Patient denies any urinary symptoms and no lower extremity edema.? All other review of system negative On arrival to the ED patient hemodynamically stable with no significant abnormal vitals Labs are significant for WBC count of 5.8, CRP of 4.14, otherwise unremarkable. Head and neck CT angiogram shows severe multilevel degenerative spondylosis with severe spinal canal stenosis at C4-C5 and C5-C6 with likely cord compression at these levels.? CT also showed patulous dilated esophagus containing fluid/ingested content Neurology was contacted by the ED, recommend a soft collar and further evaluation in a.m.. Hospital course The patient was admitted for evaluation of headache. CT scan of the head was negative for any acute findings but neck CTA was concerning for possible cord compression from cervical stenosis and multi degenerative spondylosis. The patient did not complain of any focal neurological deficit, problem with sphincter controlled . He was evaluated by neurologist Dr. Gibson who believe his headache is a rebound in nature from overusing the Excedrin. He was evaluated by vascular surgeon for reported pseudo aneurysm with no recommended intervention at this point. To follow-up with Dr. Reyna as outpatient. Patient advised to use Aleve as needed for pain Start amitriptyline 10 mg daily for pain control.. To follow-up with Neurosurgery as outpatient for further evaluation of cervical candles stenosis. Time Spent with Patient Time attestation: Total time spent providing and/or coordinating discharge services: Discharge coordination time: Greater than 30 minutes Quality: Stroke Does the patient have a stroke diagnosis?: No Physical Exam Vital Signs: Vital Signs: Last Vital Signs Temp 96.5 F L 04/26/21 08:00 Pulse 96 04/26/21 08:00 Resp 18 04/26/21 08:00 BP 147/96 H 04/26/21 08:00 Pulse Ox 96 04/26/21 08:00 Body Mass Index 22.1 Const: Other: Constitutional : Alert, oriented, not in distress Neck : Normal inspection, Supple Cardiovascular : RRR, S1 S2, no lower extremity edema Respiratory : Good bilateral air entry, no crackles, wheezes or rhonchi Gastrointestinal: soft, lax, Normal bowel sounds, Non tender Skin : Warm, Dry Neurological : Alert & oriented x3, No focal deficit DS: Data Data Completed and Pending Labs on day of discharge: Laboratory Results - last 24 hr 04/25/21 04/25/21 04/25/21 16:11 16:11 19:43 WBC 5.8 RBC 4.36 L Hgb 12.9 L Hct 38.6 L MCV 88.5 MCH 29.6 MCHC 33.4 RDW 14.1 Plt Count 237 MPV 8.2 L Immature Gran % (Auto) 0.2 Neut % (Auto) 69.3 Lymph % (Auto) 18.6 L Mcdonald % (Auto) 10.7 Eos % (Auto) 1.0 Baso % (Auto) 0.2 Lymph # (Auto) 1.1 L Mcdonald # (Auto) 0.6 Eos # (Auto) 0.1 Baso # (Auto) 0.0 Abs Immat Gran (auto) 0.01 Absolute Neuts (auto) 4.0 Absolute Nucleated RBC 0.000 Nucleated RBC % (auto) 0.0 ESR Sodium 131 L Potassium 3.7 Chloride 98 Carbon Dioxide 25 Anion Gap 12 BUN 13 Creatinine 0.71 Estim Creat Clear Calc 85.0 Estimated GFR > 60 Random Glucose 82 Calcium 8.5 Magnesium Troponin I High Sens C-Reactive Protein Urine Color Urine Appearance Urine pH Ur Specific [place] Urine Protein Urine Glucose (UA) Urine Ketones Urine Blood Urine Nitrite Ur Leukocyte Esterase Urine RBC Urine WBC Ur Squamous Epith Cells Urine Bacteria Urine Opiates Screen Urine Fentanyl Screen Ur Barbiturates Screen Ur Phencyclidine Scrn Ur Amphetamines Screen U Benzodiazepines Scrn Urine Cocaine Screen U Marijuana (THC) Screen COVID-19 (JOHNNY) Negative COVID-19 Clin Com See Note 04/25/21 04/25/21 04/25/21 19:43 19:43 19:50 WBC RBC Hgb Hct MCV MCH MCHC RDW Plt Count MPV Immature Gran % (Auto) Neut % (Auto) Lymph % (Auto) Mcdonald % (Auto) Eos % (Auto) Baso % (Auto) Lymph # (Auto) Mcdonald # (Auto) Eos # (Auto) Baso # (Auto) Abs Immat Gran (auto) Absolute Neuts (auto) Absolute Nucleated RBC Nucleated RBC % (auto) ESR 11 Sodium Potassium Chloride Carbon Dioxide Anion Gap BUN Creatinine Estim Creat Clear Calc Estimated GFR Random Glucose Calcium Magnesium Troponin I High Sens C-Reactive Protein Urine Color YELLOW Urine Appearance CLEAR Urine pH 6.0 Ur Specific [place] 1.010 Urine Protein NEG Urine Glucose (UA) NEG Urine Ketones NEG Urine Blood TRACE Urine Nitrite NEG Ur Leukocyte Esterase NEG Urine RBC 0-2 Urine WBC 0-2 Ur Squamous Epith Cells NONE Urine Bacteria NONE Urine Opiates Screen Not Detected Urine Fentanyl Screen Not Detected Ur Barbiturates Screen Not Detected Ur Phencyclidine Scrn Not Detected Ur Amphetamines Screen Not Detected U Benzodiazepines Scrn Not Detected Urine Cocaine Screen Not Detected U Marijuana (THC) Screen Not Detected COVID-19 (JOHNNY) COVID-19 [employer] Com 04/25/21 04/25/21 04/26/21 19:50 19:50 05:20 WBC 3.3 L RBC 4.73 Hgb 13.9 L Hct 41.4 L MCV 87.5 MCH 29.4 MCHC 33.6 RDW 14.1 Plt Count 262 MPV 8.3 L Immature Gran % (Auto) 0.3 Neut % (Auto) 82.5 H Lymph % (Auto) 11.8 L Mcdonald % (Auto) 4.8 Eos % (Auto) 0.3 Baso % (Auto) 0.3 Lymph # (Auto) 0.4 L Mcdonald # (Auto) 0.2 Eos # (Auto) 0.0 Baso # (Auto) 0.0 Abs Immat Gran (auto) 0.01 Absolute Neuts (auto) 2.7 Absolute Nucleated RBC 0.000 Nucleated RBC % (auto) 0.0 ESR Sodium Potassium Chloride Carbon Dioxide Anion Gap BUN Creatinine Estim Creat Clear Calc Estimated GFR Random Glucose Calcium Magnesium 1.9 Troponin I High Sens < 3.5 C-Reactive Protein 4.14 H Urine Color Urine Appearance Urine pH Ur Specific [place] Urine Protein Urine Glucose (UA) Urine Ketones Urine Blood Urine Nitrite Ur Leukocyte Esterase Urine RBC Urine WBC Ur Squamous Epith Cells Urine Bacteria Urine Opiates Screen Urine Fentanyl Screen Ur Barbiturates Screen Ur Phencyclidine Scrn Ur Amphetamines Screen U Benzodiazepines Scrn Urine Cocaine Screen U Marijuana (THC) Screen COVID-19 (JOHNNY) COVID-19 Clin Com 04/26/21 05:20 WBC RBC Hgb Hct MCV MCH MCHC RDW Plt Count MPV Immature Gran % (Auto) Neut % (Auto) Lymph % (Auto) Mcdonald % (Auto) Eos % (Auto) Baso % (Auto) Lymph # (Auto) Mcdonald # (Auto) Eos # (Auto) Baso # (Auto) Abs Immat Gran (auto) Absolute Neuts (auto) Absolute Nucleated RBC Nucleated RBC % (auto) ESR Sodium 134 L Potassium 4.3 Chloride 103 Carbon Dioxide 21 L Anion Gap 14 BUN 11 Creatinine 0.71 Estim Creat Clear Calc 83.8 Estimated GFR > 60 Random Glucose 126 H D Calcium 8.8 Magnesium Troponin I High Sens C-Reactive Protein Urine Color Urine Appearance Urine pH Ur Specific [place] Urine Protein Urine Glucose (UA) Urine Ketones Urine Blood Urine Nitrite Ur Leukocyte Esterase Urine RBC Urine WBC Ur Squamous Epith Cells Urine Bacteria Urine Opiates Screen Urine Fentanyl Screen Ur Barbiturates Screen Ur Phencyclidine Scrn Ur Amphetamines Screen U Benzodiazepines Scrn Urine Cocaine Screen U Marijuana (THC) Screen COVID-19 (JOHNNY) COVID-19 Clin Com Discharge Plan Discharge Patient Disposition: Home, Self-Care Discharge Diagnosis: Pneumonia Referrals: Jayjay Graves MD [Primary Care Provider] - 1 Week Discharge Medications: New amitriptyline 10 mg tablet 10 mg PO DAILY Qty: 30 RF: 0 Continued cetirizine 10 mg tablet 1 tab PO DAILY RF: 0 omeprazole 40 mg capsule,delayed release(DR/EC) 1 cap PO BID RF: 0 tamsulosin 0.4 mg capsule 1 cap PO DAILY RF: 0 finasteride 5 mg tablet 1 tab PO DAILY RF: 0 Discharge Orders: Discharge Order (Routine); Ordered 04/26/21 Ordered By: Lamin Montaño Diet: advance to usual diet Activity on Discharge: As tolerated Stand Alone Forms: Patient Portal Discharge page Activity Restrictions/Additional Instructions: Please follow-up with Dr. Reyna as an outpatient regarding carotid pseudoaneurysm - [phone] Care Plan Goals: Read below Health Concerns: Read below Plan of Treatment: You were admitted to the hospital for evaluation of headache. Images did not show any brain abnormality but showed cervical spine narrowing and possible cord compression. You were evaluated by neurologist who recommended outpatient follow-up with Neurosurgery for evaluation. Assessment: Your headache is likely rebound as a result of using too much Excedrin To use naproxen for headache up to 3 times a week Start amitriptyline 10 mg daily for pain control. To follow-up with Neurosurgery as outpatient for evaluation of cervical spine abnormalities. Discharge Date/Time: 04/26/21 13:34
--- NOTE | 2021-04-26 13:28 | MHC.CM.PN ---
IMM 04/26/21, PT ADMITTED W/ SEVERE CANAL STENOSIS W/CORD COMPRESSION, CM MET W/PT WHO IS A&OX4, PT LIVES W/, HAS NO DME AND NO HOME SERVICES, PT VERIFIES PCP KATIE VILLANUEVA AND COMPLETED A HCP W/CM, PT PROVIDED EDUCATIONAL INFO, ORIGINAL AND 2 COPIES. D/C PLAN: HOME TODAY SELF-CARE W/OUT-PT FOLLOW-UP NUEROLOGY, [facility] AT BEDSIDE AND WILL TRANSPORT PT HCP: AGAPITOJohn PETERSON (SPOUSE) [phone] ALTERNATE: PEREZ KENT (SON) [phone]
[2021-04-27 13:17] LABS: Lyme Abs Screen <0.90 index
== END 2021-04-26 13:34 | disposition home or self-care (01) | DRG 103 ==
LOC: HO.ED 04-26 00:06 → HO.S3 04-26 00:07
PROVIDERS: Nurse Practitioner Family; Admitting Provider Internal Medicine; Emergency Provider Emergency Medicine; PCP Internal Medicine; Visit Provider Student in an Organized Health Care Education/Training Program
DX: G44.40 Drug-induced headache, not elsewhere classified, not intractable (principal); M48.02 Spinal stenosis, cervical region; I72.0 Aneurysm of carotid artery; Z20.822 Contact with and (suspected) exposure to COVID-19; Z79.899 Other long term (current) drug therapy
CPT/HCPCS: 36415; 70496; 70498; 74018; 80048; 80307; 81001; 83735; 84484; 85025; 85652; 86140; 86617; 86618; 87635; 92610; 93005; 96360; 99218; 99285; 99291; J1100; J1650; Q9967